=== PATIENT | female | born 1930 | race Hispanic/Latino ===

== ENCOUNTER → 2017-10-25 | Outpatient (CLI) | payer OTHER | LOC: OIH 14:02 | PROVIDERS: ATTEND Family Medicine | DX: M11.261 Other chondrocalcinosis, right knee (principal); M17.11 Unilateral primary osteoarthritis, right knee | CPT/HCPCS: 73562 ==

== ENCOUNTER → 2019-06-21 | Outpatient (CLI) | payer OTHER | END | disposition home or self-care (01) | LOC: RAH 12:53 | PROVIDERS: ATTEND Family Medicine | DX: I82.592 Chronic embolism and thrombosis of other specified deep vein of left lower extremity (principal) | CPT/HCPCS: 93971 ==